=== PATIENT | male | born 1965 | race Caucasian/White ===

== ENCOUNTER 2021-01-14 22:19 | Emergency (ER) | payer OTHER ==
[~2021-01-14] VITALS: Ht 172.7 cm; Wt 100.0 kg
[~2021-01-14 22:19] MED LIST: B CO1TAB4 PO; ETAN50PE3 SQ; FOLI1TAB16 PO; HYDR-3965 PO; MELO-102 PO; METH2.5T PO; MULT-1142 PO
[2021-01-14 22:22] VITALS: BP 125/75
== END 2021-01-14 22:45 ==
LOC: ER 22:20
DX: Z00.8 Encounter for other general examination (principal); R45.851 Suicidal ideations; F32.9 Major depressive disorder, single episode, unspecified; Z72.89 Other problems related to lifestyle; Z79.899 Other long term (current) drug therapy
CPT/HCPCS: 99283